=== PATIENT | female | born 1995 | race Two or more races ===

== ENCOUNTER 2023-09-19 21:05 | Emergency (ER) | payer OTHER ==
[~2023-09-19] VITALS: Ht 152.4 cm; Wt 79.4 kg
[2023-09-19] MEDS ORDERED: PRENA1 TRUE CO1 EACH (21:09)
[2023-09-20 01:03] LABS: HEMATOCRIT 35.7 % (36.0-45.00); HEMOGLOBIN 12.1 g/dL (12.0-15.00); MEAN CELL VOLUME 83.8 fL (80.00-100.00); MEAN CORPUSCULAR HEMOGLOBIN 28.4 pg (27.00-32.0); MEAN CORPUSCULAR HGB CONC 33.9 g/dl (32.0-36.0); PLATELET COUNT 373 K/uL (150-450); RED BLOOD COUNT 4.26 M/uL (4.00-6.00); RED CELL DISTRIBUTION WIDTH 14.4 % (11.5-14.5)
[2023-09-20 01:20] LABS: CALCIUM 9.5 mg/dL (8.5-10.1); CREATININE SERUM 0.49 mg/dL (0.55-1.02); GFR 152.66; POTASSIUM 3.15 mEq/L (3.5-5.1)
[2023-09-20 04:56] LABS: URINE APPEARANCE Clear; URINE BACTERIA 246.9 uL (0.0-1933); URINE BILIRRUBIN Negative (NEGATIVE); URINE BLOOD Negative; URINE COLOR Yellow; URINE EPITHELIAL CELLS 6.7 uL (0.0-38.8); URINE GLUCOSE Negative (NEGATIVE); URINE LEUKOCYTE Negative; URINE NITRATE Negative; URINE PROTEIN Negative (NEGATIVE); URINE RBC 14.6 uL (0.0-20.8); URINE WBC 7.7 uL (0.0-23.2)
== END 2023-09-20 05:49 | disposition home or self-care (01) ==
LOC: ER 21:05
PROVIDERS: General Practice
DX: O26.891 Other specified pregnancy related conditions, first trimester (principal); O43.891 Other placental disorders, first trimester; Z3A.12 12 weeks gestation of pregnancy; T14.90XA Injury, unspecified, initial encounter; W18.39XA Other fall on same level, initial encounter; Y93.89 Activity, other specified; Y92.89 Other specified places as the place of occurrence of the external cause; Y99.9 Unspecified external cause status

== ENCOUNTER 2023-12-11 11:45 | Emergency (ER) | payer OTHER ==
[~2023-12-11] VITALS: Ht 152.4 cm; Wt 82.6 kg
[~2023-12-11 11:45] MED LIST: PRENA1 TRUE CO1 EACH
[2023-12-11] MEDS ORDERED: ECOTRIN81 MG PO (12:23)
[2023-12-11] MEDS ORDERED: MACROBID 100 M100 MG PO (12:24)
[2023-12-11 13:48] LABS: HEMATOCRIT 32.4 % (36.0-45.00); HEMOGLOBIN 11.2 g/dL (12.0-15.00); MEAN CELL VOLUME 88.4 fL (80.00-100.00); MEAN CORPUSCULAR HEMOGLOBIN 30.6 pg (27.00-32.0); MEAN CORPUSCULAR HGB CONC 34.7 g/dl (32.0-36.0); PLATELET COUNT 363 K/uL (150-450); RED BLOOD COUNT 3.66 M/uL (4.00-6.00); RED CELL DISTRIBUTION WIDTH 13.5 % (11.5-14.5)
[2023-12-11 13:55] LABS: URINE APPEARANCE Cloudy; URINE BILIRRUBIN Negative (NEGATIVE); URINE BLOOD Negative; URINE COLOR Yellow; URINE LEUKOCYTE Trace; URINE NITRATE Negative; URINE PROTEIN Negative (NEGATIVE)
[2023-12-11 13:59] LABS: URINE BACTERIA 2386.2 uL (0.0-1933); URINE EPITHELIAL CELLS 70.6 uL (0.0-38.8); URINE RBC 17.3 uL (0.0-20.8); URINE WBC 43.1 uL (0.0-23.2)
[2023-12-11 14:04] LABS: URINE GLUCOSE 500 MG/DL (NEGATIVE)
== END 2023-12-11 15:31 ==
LOC: ER 11:46
PROVIDERS: General Practice
DX: O98.512 Other viral diseases complicating pregnancy, second trimester (principal); Z3A.24 24 weeks gestation of pregnancy; Z20.822 Contact with and (suspected) exposure to COVID-19

== ENCOUNTER 2023-12-20 21:22 | Outpatient (CLI) | payer OTHER ==
[~2023-12-20 21:22] MED LIST changes: +ECOTRIN81 MG PO; +MACROBID 100 M100 MG PO
[2023-12-20] MEDS ORDERED: RINGERS SOLUTION,LACTATED 1,000 ML IV SCH (22:00)
[2023-12-20 23:07] LABS: URINE APPEARANCE Cloudy; URINE BILIRRUBIN Negative (NEGATIVE); URINE BLOOD Negative; URINE COLOR Yellow; URINE GLUCOSE Negative (NEGATIVE); URINE LEUKOCYTE Negative; URINE NITRATE Negative; URINE PROTEIN Negative (NEGATIVE)
[2023-12-20 23:08] LABS: HEMATOCRIT 31.4 % (36.0-45.00); HEMOGLOBIN 10.9 g/dL (12.0-15.00); MEAN CELL VOLUME 87.3 fL (80.00-100.00); MEAN CORPUSCULAR HEMOGLOBIN 30.3 pg (27.00-32.0); MEAN CORPUSCULAR HGB CONC 34.7 g/dl (32.0-36.0); PLATELET COUNT 406 K/uL (150-450); RED BLOOD COUNT 3.59 M/uL (4.00-6.00); RED CELL DISTRIBUTION WIDTH 13.8 % (11.5-14.5)
[2023-12-20 23:11] LABS: URINE EPITHELIAL CELLS 34.9 uL (0.0-38.8); URINE RBC 5.8 uL (0.0-20.8); URINE WBC 11.1 uL (0.0-23.2)
== END 2023-12-21 09:58 | disposition home or self-care (01) ==
LOC: OBS/DEL 21:22
PROVIDERS: Obstetrics & Gynecology; ATTEND Obstetrics & Gynecology
DX: O36.8120 Decreased fetal movements, second trimester, not applicable or unspecified (principal); Z3A.25 25 weeks gestation of pregnancy; E16.2 Hypoglycemia, unspecified